=== PATIENT | female | born 1955 | race Caucasian/White ===

== ENCOUNTER 2018-01-23 09:32 | Emergency (ER) | payer BC ==
[~2018-01-23] VITALS: Ht 165.1 cm; Wt 80.8 kg
[2018-01-23 09:34] VITALS: TEMP 36.7; Ht 165.1 cm; Wt 80.8 kg
[2018-01-23] MEDS ORDERED: THYR90TA PO (09:51)
[2018-01-23] MEDS ORDERED: SIMV40TA2 PO (09:51)
[2018-01-23] MEDS ORDERED: DIPHTHERIA/TETANUS/PERTUSSIS 0.5 ML SYR/VIAL IM. ONE (10:15)
--- NOTE | 2018-01-23 11:01 | DIAGNOSTIC IMAGING REPORT ---
LEFT LOWER EXTREMITY ULTRASOUND CLINICAL HISTORY: Left upper calf edema and erythema. Evaluate for abscess. COMPARISON STUDY: No previous studies for comparison. TECHNIQUE: Sonography of the left calf at site of edema and erythema was performed. FINDINGS: No fluid collection or other sonographic abnormality was identified within the left calf. IMPRESSION: No abscess within the left calf. Electronically signed by: Alex Schuster M.D. 01/23/2018 10:59 AM Dictated Date/Time: 01/23/2018 10:52 AM
--- NOTE | 2018-01-23 11:07 | EMERGENCY ROOM VISIT NOTE ---
History First contact with patient: 09:48 Chief Complaint: BITE Stated Complaint: BITE LEFT LEG History of Present Illness The patient is a 62 year old female who presents to the Emergency Room via private vehicle with complaints of "bite left leg". The patient states that she believes she was bitten by something on the left lateral proximal calf. She states that yesterday she noticed a small amount of redness which now has in size. It is circular in nature. Slightly raised. She feels as though there could be some fluctuance to the center of it. She notes that she did not see whatever was it may have bitten her. She does not think her tetanus is up- to-date. She is tried cream without relief. She rates the pain as a 5/10. No history of clots. No history of MRSA. Review of Systems A complete 6-point Review of Systems was discussed with the patient, with pertinent positives and negatives listed in the History of Present Illness. All remaining Review of Systems questions can be considered negative unless otherwise specified. Past Medical/Surgical History No pertinent. Family History No pertinent. Social History Smoking Status: Former Smoker Patient lives locally. Current/Historical Medications Scheduled Doxycycline (Monohydrate) (Doxycycline), 100 MG PO BID Simvastatin (Zocor), 40 MG PO DAILY Thyroid ([place] Thyroid), 90 MG PO DAILY Physical Exam Vital Signs Date Time Temp Pulse Resp B/P (MAP) Pulse Ox O2 Delivery O2 Flow Rate FiO2 01/23/18 11:34 78 18 130/80 98 Room Air 01/23/18 09:34 36.7 74 20 137/85 96 Room Air Physical Exam VITAL SIGNS - Vital signs and nursing notes were reviewed. Stable. Afebrile. GENERAL -62-year-old female appearing her stated age who is in no acute distress. Communicates well with provider and answers questions appropriately. SKIN -overlying the patient's left lateral proximal calf there is a 6 cm in diameter erythematous region. Minimal induration in the center. No fluctuance or drainage. No calf tenderness. No lymphangitic streaking. HEAD - NC/AT. EYES - Sclera anicteric. EARS - No deformities of external structures noted on gross examination bilaterally. NOSE - Midline and without cyanosis. No epistaxis or purulent drainage noted. MOUTH/OROPHARYNX - Without perioral cyanosis. EXTREMITIES - No clubbing or peripheral cyanosis. No pretibial edema present. No calf tenderness. Minimal tenderness overlying the erythematous region. No evidence of trauma. +5/5 strength noted in UE/LE bilaterally. NEUROLOGIC - Cranial nerves II through XII grossly intact. Sensory intact to light touch throughout. PSYCH - A&O, and cooperates fully with examiner. Pt is very pleasant and interacts well with examiner. Medical Decision & Procedures ER Provider Diagnostic Interpretation: LEFT LOWER EXTREMITY ULTRASOUND CLINICAL HISTORY: Left upper calf edema and erythema. Evaluate for abscess. COMPARISON STUDY: No previous studies for comparison. TECHNIQUE: Sonography of the left calf at site of edema and erythema was performed. FINDINGS: No fluid collection or other sonographic abnormality was identified within the left calf. IMPRESSION: No abscess within the left calf. Electronically signed by: Alex Schuster M.D. 01/23/2018 10:59 AM Dictated Date/Time: 01/23/2018 10:52 AM Medications Administered Medications (Trade) Dose Ordered Sig/Mitch Route Start Time Stop Time Status Last Admin Dose Admin Diphtheria/ Pertussis/Tetanus Vacc (Adacel Inj) 0.5 ml ONCE ONCE IM. 01/23/18 10:15 01/23/18 10:16 DC 01/23/18 10:09 0.5 ML Mupirocin (Bactroban 2% Oint) 1 appln NOW STAT EXT 01/23/18 11:09 01/23/18 11:11 DC 01/23/18 11:25 1 APPLN Medical Decision Patient was seen and evaluated as above in room A3. Review was performed of nursing notes and vital signs. After obtaining a thorough history and physical examination the above work up was performed. She presents to us today with left calf erythema. It is overlying a bony region. I do not suspect DVT. Ultrasound was obtained to rule out abscess. This was negative. Results as above. Tetanus updated. Region was circled with a skin marking pen. She will be given doxycycline for antibiotic coverage. She will also be given Bactroban ointment. She is to follow with the family doctor or return with worsening. At this time she meets no criteria for inpatient management as she has no fevers , chills, systemic symptoms, or abnormal vital signs. The patient was educated upon management, educated upon todays findings/results, educated upon symptoms in which to return, had questions answered prior to discharge, and was discharged home in good condition. Case was discussed with the attending physician. In the evaluation and treatment of this patient the following differential diagnoses were entertained: DVT, cellulitis, abscess, among others. Impression Primary Impression: Cellulitis Departure Information Dispostion Home / Self-Care Condition GOOD Prescriptions Doxycycline (Monohydrate) (Doxycycline) 100 Mg Cap 100 MG PO BID for 10 Days, #20 TABS Prov: Dwight Naranjo KENDALL Pettit 01/23/18 Referrals Teo Irvin M.D. (PCP) Patient Instructions My [facility] Additional Instructions You seen in the emergency department for a skin infection of your left leg. At this time I would recommend doxycycline. 100mg every 12 hours for 10 days. You have been prescribed Doxycycline to be taken as prescribed. This is an antibiotic. All antibiotics have the potential to cause diarrhea. Stop this medication and contact a medical provider if you were to develop any significant adverse side effects including: wheezing, shortness of breath, passing out, vomiting, or a diffuse rash. Always take antibiotics as directed and COMPLETE the ENTIRE course regardless of the improvement of your symptoms. Protect yourself with sunscreen while on this antibiotic as it increases your skin's sensitivity to the light and cause bad sunburns. In addition, you should be sure to take this pill after eating. Make sure the pill is completely swallowed as this medication can cause irritation to the lining of the esophagus. Do NOT drink milk or eat anything with large amounts of Calcium in them 1 hour prior to taking this medication as this will decrease the effectiveness of the medication. Please have the family doctor recheck this in the next 48 hours. If this worsens or if you develop fevers, chills, nausea, vomiting please return. Bactroban ointment: Apply to affected area 3 times daily for 10 days
[2018-01-23] MEDS ORDERED: MUPIROCIN 2% OINT 22 GM TUBE EXT STA (11:09)
[2018-01-23] MEDS ORDERED: DOXY-300 PO ×2 (11:25→12:18)
[2018-01-23 11:34] VITALS: BP 130/80; PULSE 78; O2SAT 98
== END 2018-01-23 11:42 | disposition home or self-care (01) ==
LOC: C.EDB 09:33 → C.EDA 11:42
DX: L03.90 Cellulitis, unspecified (principal); Z87.891 Personal history of nicotine dependence; Z23 Encounter for immunization

== ENCOUNTER 2018-01-25 14:30 | Emergency (ER) | payer BC ==
[~2018-01-25] VITALS: Ht 165.1 cm; Wt 80.0 kg
[~2018-01-25 14:30] MED LIST: DOXY-300 PO; SIMV40TA2 PO; THYR90TA PO
[2018-01-25 14:47] VITALS: TEMP 36.8; Ht 165.1 cm; Wt 80.0 kg
[2018-01-25] MEDS ORDERED: CEFTRIAXONE SOD 350MG/ML 1 GM VIAL IM ONE (15:15)
[2018-01-25] MEDS ORDERED: CEPH500C2 PO (15:32)
--- NOTE | 2018-01-25 15:53 | EMERGENCY ROOM VISIT NOTE ---
ED Visit Note First contact with patient: 14:52 CHIEF COMPLAINT: Recheck left lower leg cellulitis HISTORY OF PRESENT ILLNESS: Patient is a 62-year-old female who returns to the emergency department as advised for recheck of a suspected cellulitis on the left lateral calf. She was seen and thoroughly evaluated here 2 days ago for the same complaint. She has been on doxycycline and taken her fourth dose of doxy just this morning. She has been applying Bactroban ointment to the area. She notes that the area of redness has spread not quite an inch circumferentially around the initial pen line. She is concerned because she does not have an appointment with her PCP until Saturday the . She otherwise feels well. The area is not particularly painful, she states that it is slightly sore and "heavy" sometimes, and itches on occasion. She denies any fever, chills, nausea, vomiting or malaise. She believes that the incident started with a "spider bite" after she was outside. REVIEW OF SYSTEMS: Review of systems as per HPI. All other systems reviewed were negative. 10 systems reviewed. PMH: Electronic medical records are reviewed and summarized as above/below. See Problem List. SOCIAL HISTORY: Patient lives at home with her spouse. Former smoker. PHYSICAL EXAM: Vital Signs: Reviewed Nurse's notes. GENERAL: Patient is a pleasant, well-appearing 62-year-old female who is awake and alert and in no acute distress. NEUROLOGICAL: Alert and cooperative. Sensory and motor functions grossly intact. INTEGUMENTARY: Examination of the left leg, proximal calf, just lateral to the knee note an oval-shaped area of erythema, it is more beefy red centrally, slightly raised, no fluctuance, drainage or exudate appreciated. Is roughly 8 cm at its largest diameter. It does not cross the knee joint. There is no calf tenderness. No lymphangitic streaking. MUSCULOSKELETAL: Knee joint is nontender to palpation. No joint effusion palpable. Full range of motion. Right lower extremity is neurovascularly intact. EMERGENCY DEPARTMENT COURSE: The patient was seen and assessed as above. Her old records were reviewed, specifically her ED visit from 2 days ago. She is only had 4 doses of doxycycline, but has not shown any significant clinical improvement, and appears to be slightly worsening. She really would prefer to continue outpatient management, and given that she is well-appearing and nontoxic, I do feel that this is reasonable. She has an appointment with her PCP in [place] in 2 days. She was given ceftriaxone 1 g IM. Keflex will be added to her regimen. She was instructed to continue the doxycycline. Certainly if things worsen in the next 24 hours, she can return to the ED, at which point she will likely require inpatient care, otherwise she can follow-up with her primary care provider on Saturday as she has scheduled. Differential diagnoses include cellulitis, superficial thrombophlebitis, abscess, allergic reaction, contact dermatitis, among others. Medication reconciliation: I attest that I have personally reviewed the patient' s current medication list. Blood pressure screening : Patient was found to have normal blood pressure on screening and does not require follow-up. Problem List Medical Problems: (1) Dyslipidemia Status: Chronic (2) Hypothyroidism Status: Chronic Surgical Problems: (1) History of section Status: Resolved (2) History of nephrectomy, unilateral Status: Resolved (3) History of ovarian cystectomy Status: Resolved Current/Historical Medications Scheduled Cephalexin Monohydrate (Keflex), 500 MG PO QID Doxycycline (Monohydrate) (Doxycycline), 100 MG PO BID Simvastatin (Zocor), 40 MG PO DAILY Thyroid ([place] Thyroid), 90 MG PO DAILY Allergies Coded Allergies: Naproxen (Unverified Allergy, Intermediate, ., 01/23/18) Penicillins (Unverified Allergy, Intermediate, ., 01/23/18) Vital Signs Date Time Temp Pulse Resp B/P (MAP) Pulse Ox O2 Delivery O2 Flow Rate FiO2 01/25/18 14:47 36.8 90 18 118/82 97 Room Air Medications Administered Medications (Trade) Dose Ordered Sig/Mitch Route Start Time Stop Time Status Last Admin Dose Admin Ceftriaxone Sodium (Rocephin Im) 1,000 mg NOW ONCE IM 01/25/18 15:15 01/25/18 15:16 DC 01/25/18 15:41 1,000 MG Departure Information Impression Primary Impression: Cellulitis Prescriptions Cephalexin Monohydrate (KEFLEX) 500 Mg Cap 500 MG PO QID, #40 CAP Prov: Rosalia Dewitt PA 01/25/18 Referrals Teo Irvin M.D. (PCP) Patient Instructions My [facility] Additional Instructions Continue doxycycline as previously prescribed. Cephalexin(Keflex) 500mg: Take one pill four times daily for 10 days for your skin infection. All antibiotics can cause diarrhea. If this occurs and you feel worse or it does not resolve in 1-2 days follow up with your doctor or return to the Emergency Department as this could be signs of serious underlying problems. Any medication can cause an allergic reaction, stop the pills immediately and return to the ER for rash, hives, breathing difficulties, or swelling. Ibuprofen(Motrin, Advil) may be used for fever or pain. Use 600mg every six hours as needed. Take with food. Avoid using more than 2400mg in a 24 hour period. Do not use 2400mg per day for more than three consecutive days without physician direction. Prolonged inappropriate use can lead to stomach upset or ulcers. (AND/OR) Acetaminophen(Tylenol) may be used for fever or pain. Use 1000mg every six hours as needed. Avoid using more than 3000mg in a 24 hour period. Warm compresses to the affected area 4 times daily for 15-20 minutes. Rest and drink plenty of fluids. Continue current medications. Return to the ER for severe pain, persistent fevers, spreading redness, or any worsening of your condition. Follow up with your primary physician on Saturday as scheduled for a recheck of the current condition. Problem Qualifiers Primary Impression: Cellulitis Site of cellulitis: extremity Site of cellulitis of extremity: lower extremity Laterality: left Qualified Codes: L03.116 - Cellulitis of left lower limb
[2018-01-25 16:15] VITALS: BP 125/85; PULSE 83; O2SAT 96
== END 2018-01-25 16:15 | disposition home or self-care (01) ==
LOC: C.EDB 14:31 → C.EDD 16:15
DX: L03.116 Cellulitis of left lower limb (principal); E78.5 Hyperlipidemia, unspecified; E03.9 Hypothyroidism, unspecified; Z87.891 Personal history of nicotine dependence; Z90.5 Acquired absence of kidney; Z79.899 Other long term (current) drug therapy; Z88.6 Allergy status to analgesic agent; Z88.0 Allergy status to penicillin

== ENCOUNTER 2024-11-23 10:34 | Inpatient (IN) ==
--- NOTE | 2024-11-23 10:58 | Emergency Department Note ---
Impression & Plan Diverticulitis, Abdominal pain, Leukocytosis ED Provider Note NAME: CHAU RODRIGUEZ AGE: 69 SEX: F : 1955 ARRIVES VIA: Walk-In INFORMANT: Patient ED PROVIDER(S): Ronnie Montalvo DO CHIEF COMPLAINT: Abdominal pain HPI: Patient is a 69-year-old female with a past medical history of who presents to the ER for left lower quadrant abdominal pain which started on Saturday. Has been waxing and waning in intensity but fairly constant. She has not been eating. No vomiting. Has had some pasty stools. Patient denies any headache or change in vision. No chest pain or shortness of breath. No dysuria, urgency or frequency. No other exacerbating or remitting factors. ADDITIONAL HISTORY OBTAINED: Per HPI Chronic Medical/Social Conditions Affecting Care: Per HPI PAST MEDICAL HISTORY:See Below PAST SURGICAL HISTORY:See Below FAMILY HISTORY:See Below SOCIAL HISTORY:See Below HOME MEDICATIONS:See Below ALLERGIES:See Below VITALS:See Below PHYSICAL EXAMINATION: GENERAL: Sitting up in bed, alert, well appearing, well nourished, no distress, non-toxic EYE EXAM: normal conjunctiva. OROPHARYNX: mucous membranes are moist LUNGS: Clear to auscultation. Normal chest wall mechanics HEART: no murmurs, S1 normal and S2 normal ABDOMEN: abdomen soft, TTP in LLQ, normo-active bowel sounds, no masses, no rebound or guarding. UPPER EXTREMITIES: upper extremities are grossly normal. LOWER EXTREMITIES: No pitting edema. NEURO EXAM: Normal sensorium, cranial nerves II-XII grossly intact, normal speech, no gross weakness of arms, no gross weakness of legs. MEDICAL DECISION MAKING: Patient is a 69-year-old female who presents ER for above-stated complaint. IV was established and blood work was obtained. Labs show mild leukocytosis. No anemia. BMP along LFTs bilirubin and lipase as well as reassuring. UA was contaminated. CT abdomen pelvis consistent with diverticulitis and a questionable abscess was present. Patient was given IV Flagyl and Cipro. Was given IV fluids. Updated at bedside and discussed case with the hospitalist for further evaluation management and treatment. Consults/Care Managements Discussions: Per MDM Triage Nursing notes reviewed. Limited review of prior medical records performed Vital Signs: reviewed and remarkable for no significant abnormalities Differential diagnosis: Differential diagnoses includes but is not limited to gastritis, peptic ulcer disease, GERD, gallbladder disease, pancreatitis, small bowel obstruction, appendicitis, diverticulitis, hernia, urinary tract infection, torsion, perforation, trauma, infectious. ER treatment provided: See below Diagnostics interpreted by me include EKG and cardiac monitoring as listed below: -Cardiac Monitoring: An order was placed for continuous cardiac monitoring. The monitor shows a rate of 90 with sinus rhythm. -ECG: none -Laboratory studies:Interpreted by me as stated above in MDM and shown below. Imaging studies: Xrays: As interpreted by me:none CTs show: CT abdomen pelvis per my preliminary interpretation showed no obvious bowel obstruction CT of the pelvis per radiology as described above Procedures:none Critical Care: None Past Med/Surg History Problem List (Updated 11/23/24 @ 16:56 by Ronnie Montalvo DO) Leukocytosis (Acute) Abdominal pain (Acute) Diverticulitis (Acute) Positive colorectal cancer screening using Cologuard test Medical History Dyslipidemia Polymyalgia rheumatica syndrome has been off prednisone ~09/2023 History of COVID-19 (12/10/12) no hosp; resolved Suspected sleep apnea no sleep study done; was told by anesthesia after granuloma removal (~10 yrs ago) that they suspected sleep apnea. Has had no general procedures since, last thing done was tooth extraction, no issues Hypothyroidism Hx of unilateral nephrectomy at 7 yrs old; d/t defect Surgical History History of ovarian cystectomy Hx of excision of mass hx benign granuloma removed from chest Hx of section Hx of tooth extraction Social History Smoking Status: Current every day smoker Tobacco Type: E-cigarettes / Vaping Second Hand Exposure: No; Hx Alcohol Use: Yes Hx Substance Use: No Preferred Language: Czech Communication Ability: Effective Auto Polisher Required: No Beliefs That Will Affect Care: None Current Living Situation: Spouse Feels Safe at Home: Yes Assistive Devices: None Allergies Allergies Allergy/AdvReac Type Severity Reaction Status Date / Time Penicillins Allergy Intermediate Rash Verified 05/06/24 08:53 naproxen AdvReac Intermediate N/V Verified 05/06/24 08:53 Home Meds Home Medications Medication Instructions Recorded Confirmed Co Q-10 1 tab PO QAM 04/27/24 11/23/24 Enhansa 1 tab PO QAM 04/27/24 11/23/24 multivitamin 1 tab PO QAM 04/27/24 11/23/24 rosuvastatin 10 mg tablet (Crestor) 10 mg PO .TWICE WEEKLY 04/27/24 11/23/24 thyroid (pork) 90 mg tablet 90 mg PO QAM 04/27/24 11/23/24 ([place] Thyroid) alprazolam 0.5 mg tablet 0.5 mg PO DAILY PRN Other 11/23/24 11/23/24 Results & Data (ED) Vital Signs Vital Signs - 24 hr 11/23/24 10:44 11/23/24 11:11 11/23/24 11:11 Temperature 36.8 C Temperature Source Oral Pulse Rate 93 H 87 Pulse Rate [Apical] 87 Respiratory Rate 20 21 Respiratory Effort / Characteristics Non-Labored Spontaneous Non-Labored Spontaneous Respiratory Depth Normal Respiratory Pattern Regular Blood Pressure 123/77 Blood Pressure [Right Arm] 108/88 Blood Pressure Mean 92 Blood Pressure Mean [Right Arm] 94 Blood Pressure Position [Right Arm] Lying Pulse Oximetry 97 95 95 Oxygen Delivery Method Room Air Room Air Room Air Sepsis Recent Fever Within 48 Hours No Sepsis New/Unexplained Change in Mental Status N/A Sepsis Action Taken by Nursing No Action Required 11/23/24 11:27 Temperature Temperature Source Pulse Rate 90 Pulse Rate [Apical] Respiratory Rate Respiratory Effort / Characteristics Respiratory Depth Respiratory Pattern Blood Pressure Blood Pressure [Right Arm] Blood Pressure Mean Blood Pressure Mean [Right Arm] Blood Pressure Position [Right Arm] Pulse Oximetry Oxygen Delivery Method Sepsis Recent Fever Within 48 Hours Sepsis New/Unexplained Change in Mental Status Sepsis Action Taken by Nursing Laboratory Data 11/23/24 11:04 11/23/24 11:04 Lab Results 11/23/24 Range/Units 11:04 WBC 11.40 H (4.8-10.8) K/ul RBC 5.13 (4.20-5.40) M/uL Hgb 14.9 (12.0-16.0) g/dl Hct 46.8 (37.0-47.0) % MCV 91.2 (80.0-100.0) fL MCH 29.0 (25.0-34.0) pg MCHC 31.8 L (32.0-36.0) g/dL RDW Std Deviation 44.0 (36.4-46.3) fL RDW Coeff of Bettie 13.0 (11.5-14.5) % Plt Count 303 (130-400) K/uL MPV 10.6 (9.4-12.4) fL Immature Gran % (Auto) 0.4 % Neut % (Auto) 69.1 % Lymph % (Auto) 21.2 % [place] % (Auto) 7.2 % Eos % (Auto) 1.7 % Baso % (Auto) 0.4 % Neut # (Auto) 7.88 H (1.40-6.50) K/uL Lymph # (Auto) 2.42 (1.20-3.40) K/uL [place] # (Auto) 0.82 H (0.11-0.59) K/uL Eos # (Auto) 0.19 (0.00-0.50) K/uL Baso # (Auto) 0.04 (0.00-0.20) K/uL Immature Gran # (Auto) 0.05 (0.01-0.20) K/uL Sodium 136 (136-145) mmol/L Potassium 4.2 (3.5-5.1) mmol/L Chloride 103 (98-107) mmol/L Carbon Dioxide 26 (21-32) mmol/L Anion Gap 7 (3-11) BUN 11 (6-23) mg/dl Creatinine 0.95 (0.6-1.2) mg/dl Est Cr Clr Drug Dosing 60.3 ml/min eGFR 65.26 BUN/Creatinine Ratio 11.6 (10-20) Glucose 103 H (70-99(Fasting)) mg/dl Calcium 9.4 (8.6-10.3) mg/dl Total Bilirubin 0.9 (0.2-1.0) mg/dl AST 28 (13-39) U/L ALT 29 (7-52) U/L Alkaline Phosphatase 86 (34-104) U/L Total Protein 7.7 (6.0-8.3) gm/dl Albumin 4.4 (3.4-5.0) gm/dl Globulin 3.3 (2.5-4.0) gm/dl Albumin/Globulin Ratio 1.3 (0.9-2) Lipase 20 (11-82) U/L Urine Color Yellow Urine Appearance Clear (Clear) Urine pH 6.0 (4.5-7.5) Ur Specific Ethel 1.008 (1.000-1.030) Urine Protein Negative (Negative) Urine Glucose (UA) Negative (Negative) Urine Ketones Trace H (Negative) Urine Blood Negative (Negative) Urine Nitrite Negative (Negative) Urine Bilirubin Negative (Negative) Urine Urobilinogen Negative (Negative) Ur Leukocyte Esterase 3+ H (Negative) Urine WBC (Auto) >50 H (0-5) /hpf Urine RBC (Auto) 0-2 (0-2) /hpf U Hyaline Cast (Auto) 3-5 H (0-2) /lpf U Epithel Cells (Auto) 6-10 H (0-2) /hpf Urine Bacteria (Auto) 1+ H (None Seen) Urine Comment Administered Medications Discontinued Medications Sodium Chloride (Nss) 1,000 mls @ 999 mls/hr IV .Q1H1M ONE Stop: 11/23/24 11:49 Last Infusion: 11/23/24 12:57 Dose: Infused Documented By: Admin: 11/23/24 11:07 Dose: 999 mls/hr Documented By: GE Metronidazole (Flagyl) 500 mg in 100 mls @ 100 mls/hr IV NOW STA; Protocol Stop: 11/23/24 13:24 Last Infusion: 11/23/24 13:44 Dose: Infused Documented By: Admin: 11/23/24 12:38 Dose: 100 mls/hr Documented By: GE Ciprofloxacin (Cipro / D5w) 400 mg in 200 mls @ 100 mls/hr IV NOW STA; Protocol Stop: 11/23/24 14:24 Last Infusion: 11/23/24 15:04 Dose: Infused Documented By: Admin: 11/23/24 12:37 Dose: 100 mls/hr Documented By: GE Ioversol (Optiray 320 100ml) 92 ml IV ONCE ONE Stop: 11/23/24 11:55 Last Admin: 11/23/24 11:54 Dose: 92 ml Documented By: ABS Imaging Data Radiologist's Impression: Abdomen/Pelvis CT 11/23/24 10:[address] WITH IV CONTRAST CT DOSE: 1307.84 mGy.cm HISTORY: Mid to lower abdominal pain mid abd pain TECHNIQUE: Multiaxial CT images of the abdomen and pelvis were performed following the IV administration of 92 cc of Optiray, A dose lowering technique was utilized adhering to the principles of ALARA. COMPARISON STUDY: None. FINDINGS: Clear lung bases. No pneumatosis or pneumoperitoneum. Unremarkable spleen, pancreas, gallbladder, adrenal glands and liver. Patent portal vein. Unremarkable right kidney. Absent left kidney. Urinary bladder wall thickening with partial distention. Uterus and adnexa are unremarkable. Mild atherosclerosis of the aorta. No lymphadenopathy. Small hiatal hernia. No bowel obstruction. Duodenal diverticulum. Acute sigmoid diverticulitis. Possible intramural abscess of the sigmoid on image 285 measures 2.7 cm in length. No drainable fluid collections. Appendix not seen. No acute fracture. Chronic appearing left-sided L5 pars defect. IMPRESSION: 1. Acute sigmoid diverticulitis without obstruction, pneumoperitoneum or drainable abscess. There is however a possible small intramural abscess of the sigmoid. 2. Absent left kidney. 3. Small hiatal hernia. ACT 112: Negative or not required by law. The above report was generated using voice recognition software. It may contain grammatical, syntax or spelling errors. Electronically signed by: Junior Whitlock M.D. 11/23/2024 12:17 PM Discharge Plan Visit Data Chief Complaint: Abdominal Pain Stated Complaint: ABD PAIN ED Provider: Ronnie Montalvo Discharge Problem: Diverticulitis, Abdominal pain, Leukocytosis Patient Disposition: Admitted As Inpatient Condition: Fair Discharge Instructions Interventions: ED Discharge Assessment Last Done: 11/23/24 15:57 Discharge Problem: Abdominal pain Qualifiers: Abdominal location: unspecified location Qualified Code(s): R10.9 - Unspecified abdominal pain Leukocytosis Qualifiers: Leukocytosis type: unspecified Qualified Code(s): D72.829 - Elevated white blood cell count, unspecified
[2024-11-23] MEDS: SODIUM CHLORIDE 0.9% 1,000 ML IV ONE (11:07)
[2024-11-23 11:24] LABS: Basophils # (auto) 0.04 K/uL (0.00-0.20); Basophils % (auto) 0.4 %; Eosinophils # (auto) 0.19 K/uL (0.00-0.50); Eosinophils % (auto) 1.7 %; Hematocrit (blood only) 46.8 % (37.0-47.0); Hemoglobin 14.9 g/dl (12.0-16.0); Immature Granulocytes # (auto) 0.05 K/uL (0.01-0.20); Immature Granulocytes % (auto) 0.4 %; Lymphocytes # (auto) 2.42 K/uL (1.20-3.40); Lymphocytes % (auto) 21.2 %; Mean Corpuscular Hgb Conc 31.8 g/dL (32.0-36.0); Mean Corpuscular Volume 91.2 fL (80.0-100.0); Mean Platelet Volume 10.6 fL (9.4-12.4); Monocytes # (auto) 0.82 K/uL (0.11-0.59); Monocytes % (auto) 7.2 %; Neutrophils # (auto) 7.88 K/uL (1.40-6.50); Neutrophils % (auto) 69.1 %; Platelet Count 303 K/uL (130-400); Red Blood Count 5.13 M/uL (4.20-5.40)
[2024-11-23 11:36] LABS: Appearance Urine Clear (Clear); Bacteria Urine Automated 1+ (None Seen); Bilirubin Urine Negative (Negative); Blood Urine Negative (Negative); Color Urine Yellow; Glucose Urine UA Negative (Negative); Ketones Urine Trace (Negative); Leukocyte Esterase Urine 3+ (Negative); Nitrite Urine Negative (Negative); Protein Urine Negative (Negative); RBC Urine Automated 0-2 /hpf (0-2); Specific Gravity Urine 1.008 (1.000-1.030); Urobilinogen Urine Negative (Negative); WBC Urine Automated >50 /hpf (0-5)
[2024-11-23 11:46] LABS: Albumin Globulin Ratio 1.3 (0.9-2); Albumin Level 4.4 gm/dl (3.4-5.0); BUN Creatinine Ratio 11.6 (10-20); Bilirubin,Total 0.9 mg/dl (0.2-1.0); Calcium 9.4 mg/dl (8.6-10.3); Creatinine Clr Calc Pharmacy 60.3 ml/min; Globulin 3.3 gm/dl (2.5-4.0); Potassium 4.2 mmol/L (3.5-5.1); Total Protein 7.7 gm/dl (6.0-8.3)
[2024-11-23] MEDS: OPTIRAY 320 100ml IV ONE (11:54)
--- NOTE | 2024-11-23 12:18 | CT Scan Report ---
ABDOMEN AND PELVIS CT WITH IV CONTRAST CT DOSE: 1307.84 mGy.cm HISTORY: Mid to lower abdominal pain mid abd pain TECHNIQUE: Multiaxial CT images of the abdomen and pelvis were performed following the IV administrat ion of 92 cc of Optiray, A dose lowering technique was utilized adhering to the principles of ALARA. COMPARISON STUDY: None. FINDINGS: Clear lung bases. No pneumatosis or pneumoperitoneum. Unremarkable spleen, pancreas, gallbl adder, adrenal glands and liver. Patent portal vein. Unremarkable right kidney. Absent left kidney. U rinary bladder wall thickening with partial distention. Uterus and adnexa are unremarkable. Mild athe rosclerosis of the aorta. No lymphadenopathy. Small hiatal hernia. No bowel obstruction. Duodenal diverticulum. Acute sigmoid diverticulitis. Possi ble intramural abscess of the sigmoid on image 285 measures 2.7 cm in length. No drainable fluid dean ections. Appendix not seen. No acute fracture. Chronic appearing left-sided L5 pars defect. IMPRESSION: 1. Acute sigmoid diverticulitis without obstruction, pneumoperitoneum or drainable abscess. There is however a possible small intramural abscess of the sigmoid. 2. Absent left kidney. 3. Small hiatal hernia. ACT 112: Negative or not required by law. The above report was generated using voice recognition software. It may contain grammatical, syntax o r spelling errors. Electronically signed by: Junior Whitlock M.D. 11/23/2024 12:17 PM
[2024-11-23] MEDS: CIPROFLOXACIN / D5W 400 MG/200 ML BAG IV STA (12:37)
[2024-11-23] MEDS: metroNIDAZOLE 500 MG/100 ML BAG IV STA (12:38)
--- NOTE | 2024-11-23 13:15 | History & Physical Report ---
Date of Service November 23, 2024 Assessment & Plan (1) Hypothyroidism: (2) Dyslipidemia: (3) Diverticulitis: Plan 69-year-old female who presents with abdominal pain found to have diverticulitis with a small intramural abscess. 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 Urine culture is pending at time of admission #Diverticulitis. Will patient be kept n.p.o. except for ice chips Cipro Flagyl continues patient have an additional liter fluid if the patient improves we may advance diet #Hypothyroidism patient given her [place] Thyroid with a small sip of water #Dyslipidemia patient's Crestor is on hold. DVT prevention is heparin therapy History of Present Illness Primary Care Provider: Teo Irvin MD 69-year-old female presents with left lower quadrant pain which began 3 days prior to admission it is crescendo decrescendo. She said change in stool habits to be more of a pasty soft stool. She has had no bleeding. Her last colonoscopy was May [address] Sood at which time she had 3 polyps removed and was told she had diverticulosis. She has never had a problem with diverticulitis. In the emergency department she has a mild white blood cell count elevation and signs of diverticulitis with intramural abscess but no pneumoperitoneum or phlegmon formation Patient was given Cipro Flagyl in the ER she will be admitted to our facility Allergies Allergy/AdvReac Type Severity Reaction Status Date / Time Penicillins Allergy Intermediate Rash Verified 05/06/24 08:53 naproxen AdvReac Intermediate N/V Verified 05/06/24 08:53 Home Medications Medication Instructions Recorded Confirmed Type Co Q-10 1 tab PO QAM 04/27/24 11/23/24 History Enhansa 1 tab PO QAM 04/27/24 11/23/24 History multivitamin 1 tab PO QAM 04/27/24 11/23/24 History rosuvastatin 10 mg tablet (Crestor) 10 mg PO .TWICE WEEKLY 04/27/24 11/23/24 History thyroid (pork) 90 mg tablet 90 mg PO QAM 04/27/24 11/23/24 History ([place] Thyroid) alprazolam 0.5 mg tablet 0.5 mg PO DAILY PRN Other 11/23/24 11/23/24 History Past Med/Surg History Problem List (Updated 11/23/24 @ 13:12 by Suman Mckee MD) Diverticulitis Positive colorectal cancer screening using Cologuard test Medical History (Updated 11/23/24 @ 13:12 by Suman Mckee MD) Dyslipidemia Polymyalgia rheumatica syndrome has been off prednisone ~09/2023 History of COVID-19 (12/10/12) no hosp; resolved Suspected sleep apnea no sleep study done; was told by anesthesia after granuloma removal (~10 yrs ago) that they suspected sleep apnea. Has had no general procedures since, last thing done was tooth extraction, no issues Hypothyroidism Hx of unilateral nephrectomy at 7 yrs old; d/t defect Surgical History History of ovarian cystectomy Hx of excision of mass hx benign granuloma removed from chest Hx of section Hx of tooth extraction Social History Smoking Status: Current every day smoker Tobacco Type: E-cigarettes / Vaping Second Hand Exposure: No; Hx Alcohol Use: Yes Hx Substance Use: No Preferred Language: Swedish Communication Ability: Effective Social Insurance Adviser Required: No Beliefs That Will Affect Care: None Current Living Situation: Spouse Feels Safe at Home: Yes Assistive Devices: None Review of Systems Review of Systems: Mild distress and fatigue no headache, no visual changes no speech or swallowing issues no chest pain, pressure or palpitations no shortness of breath, cough or wheezes Presented to congenital left lower quadrant abdominal pain there is some worsening pain with walking no dysuria, hematuria or frequency no focal joint pain or swelling no back pain, CVA tenderness or radicular pain no bruising, bleeding or rashes no focal signs of weakness or numbness or altered sensation no complaints of anxiety or depression.. Physical Exam Physical Exam: The patient appeared well nourished and normally developed. Vital signs as documented. Head exam is normocephalic atraumatic Neck is without JVD, thyromegaly, or carotid bruits. Lungs are clear to auscultation, no focal loss of breath sounds Cardiac exam, Rhythm is regular.. No murmurs, rubs or gallops. Abdominal exam reveals normal bowel sounds, soft left lower quadrant pain guarding but no rebound Mild right upper quadrant discomfort may be positional Extremities are nonedematous and both pedal pulses are present Neurologic exam is alert and oriented, no focal loss of strength or sensation Skin is without bruises or rashes Psychologically is without concerns for anxiety or depression.. Results & Data Results & Data Vital Signs (Past 12 Hours) Vital Signs Temp Pulse Pulse Resp BP BP Pulse Ox 11/23/24 11:27 90 11/23/24 11:11 87 95 11/23/24 11:11 87 21 108/88 95 11/23/24 10:44 98.2 F 93 H 20 123/77 97 O2 Del Method 11/23/24 11:27 11/23/24 11:11 Room Air 11/23/24 11:11 Room Air 11/23/24 10:44 Room Air Laboratory Results Reviewed CBC chemistry CT scan discussed case with ER provider Dr. Montalvo Code Status & VTE Plan VTE Prophylaxis Plan VTE Prophylaxis will be ordered: No PG Care Time/CCT Total # of Minutes Spent Total Time Spent with Patient: Total time spent is greater than 50% in coordination of care (as documented) at patient's floor/unit and/or counseling patient: Coding Level of Care Code 00593 INT INP/OBS CARE 2/55MIN Diagnoses Hypothyroidism E03.9 Dyslipidemia E78.5 Diverticulitis K57.92
[2024-11-23] MEDS ORDERED: MoRPHine SULFATE 2 MG/ML CARP IV PRN (15:56)
[2024-11-23] MEDS ORDERED: MoRPHine SULFATE 4 MG/ML 1 ML CARP\\VIAL IV PRN (15:56)
[2024-11-23] MEDS ORDERED: ALPRAZolam 0.5 MG TABLET PO PRN (15:56)
[2024-11-23] MEDS: LACTATED RINGER'S 1,000 ML IV SCH (17:11)
[2024-11-23] MEDS: HEPARIN SOD 5,000 UNIT/0.5 ML VIAL SQ SCH (20:13)
[2024-11-23] MEDS: metroNIDAZOLE 500 MG/100 ML BAG IV SCH (20:13)
[2024-11-24] MEDS: CIPROFLOXACIN / D5W 400 MG/200 ML BAG IV SCH (01:12)
[2024-11-24] MEDS: ONDANSETRON INJ 2 MG/ML 2 ML VIAL IV PRN (03:14)
[2024-11-24] MEDS: ARMOUR THYROID 30 MG TAB PO SCH (07:13)
[2024-11-24 07:16] LABS: Hematocrit (blood only) 38.8 % (37.0-47.0); Hemoglobin 12.8 g/dl (12.0-16.0); Mean Corpuscular Hemoglobin 29.8 pg (25.0-34.0); Mean Corpuscular Volume 90.4 fL (80.0-100.0); Mean Platelet Volume 10.5 fL (9.4-12.4); Platelet Count 264 K/uL (130-400); RDW Coefficient of Variation 13.1 % (11.5-14.5); Red Blood Count 4.29 M/uL (4.20-5.40); White Blood Count 8.47 K/ul (4.8-10.8)
[2024-11-24 07:35] LABS: Calcium 8.5 mg/dl (8.6-10.3); Potassium 4.3 mmol/L (3.5-5.1)
[2024-11-24 07:40] LABS: BUN Creatinine Ratio 12.4 (10-20); Creatinine Clr Calc Pharmacy 63.2 ml/min
--- NOTE | 2024-11-24 18:05 | Hospitalist Progress Note ---
Date of Service November 24, 2024 Assessment & Plan (1) Diverticulitis: (2) Hypothyroidism: (3) Dyslipidemia: Plan 69-year-old female who presents with abdominal pain found to have diverticulitis with a small intramural abscess. 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 Urine culture negative. #Diverticulitis Patient received IVF in the emergency department Leukocytosis has resolved (11.4 -> 8.4); VSS A/P CT with small intramural abscess; not drainable Continue ciprofloxacin + Flagyl Initially n.p.o. Patient reports resolution of abdominal pain on 11/24 Advanced to clear liquid on the morning of 11/24, then if tolerating, will advance to low fiber diet on the evening of 11/24 #Hypothyroidism Continue [place] Thyroid #Dyslipidemia Hold Crestor DVT prevention: Heparin Disposition: Hopeful discharge home on 11/25 on oral antibiotics if tolerating low fiber diet Admission and Anticipated Discharge Date Admission Date: November 23, 2024 Supervising Physician Co-Signing Physician Notes The patient was not seen by me. The chart was reviewed. Case discussed with MAIRA Mondragon. Agree with assessment and plan Subjective Mrs. Ibarra reports she is doing much better today. She has had no abdominal pain throughout the day, and her only complaint is that she is incredibly hungry, and that she slept poorly last night (mainly due to the fact that she slept on her left side where her IV was placed). Patient denies any prior history of diverticulitis. Originally, her left lower quadrant pain was severe, but she has had no recurrence of pain today. Prior surgical history includes C- section and ovarian rupture. No PMH of IBD. Patient's last colonoscopy was May 06, 2024, and patient reports this was unremarkable. Additionally, patient does have ongoing diarrhea every 6 hours which is brown/liquidy in consistency; denies any blood in her stool. ROS: Patient endorses dry cough, nausea (which patient attributes to antibiotics; alleviated by Zofran) and diarrhea. Patient denies fever, chills, night sweats, dizziness/lightheadedness when ambulating to the bathroom, abdominal pain, vomiting, blood in the urine or stool, lower back pain, or numbness or tingling in the arms or legs. Review of Systems Review of Systems: See HPI above Physical Exam Physical Exam: General: no acute distress; pleasant affect; non-toxic appearing; cooperative; SpO2 95% on RA HEENT: normocephalic, atraumatic; no scleral icterus; PERRLA; vision and hearing grossly intact Neck: supple; no lymphadenopathy; trachea midline Skin: warm, dry without signs of tenting; no cyanosis; no rashes, bruising, lesions, or erythema noted CV: chest wall NTP; RRR; pulses intact and symmetric at radial, DP, and PT Lungs: no acute respiratory distress; symmetrical chest wall expansion; clear breath sounds across all lung brock w/o adventitious sounds; no wheezing ABD: Soft, NTP in all 4 quadrants; BS present; no rebound/guarding; no distention MSK: no tics or fasciculations; no edema noted in the LEs b/l, nonerythematous Neuro: A&Ox3; normal mood and affect; fluent speech; no focal deficits; sensation intact and symmetric in lower extremities bilaterally Results & Data Results & Data Vital Signs (Past 12 Hours) Vital Signs Temp Pulse Resp BP Pulse Ox O2 Del Method 11/24/24 15:20 36.8 C 77 18 109/74 95 Room Air 11/24/24 07:48 36.4 C L 80 18 124/77 93 Room Air PG Care Time/CCT Total # of Minutes Spent Total Time Spent with Patient: Total time spent is greater than 50% in coordination of care (as documented) at patient's floor/unit and/or counseling patient: Coding [place] [address] SUB INP/OBS CARE 06/27MIN Patient Type Established Medical Decision Making Low Complexity Diagnoses Diverticulitis K57.92 Hypothyroidism E03.9 Dyslipidemia E78.5
[2024-11-25 07:05] LABS: Hematocrit (blood only) 37.8 % (37.0-47.0); Hemoglobin 12.5 g/dl (12.0-16.0); Mean Corpuscular Hemoglobin 29.7 pg (25.0-34.0); Mean Corpuscular Hgb Conc 33.1 g/dL (32.0-36.0); Mean Corpuscular Volume 89.8 fL (80.0-100.0); Mean Platelet Volume 10.6 fL (9.4-12.4); Platelet Count 272 K/uL (130-400); RDW Coefficient of Variation 12.9 % (11.5-14.5); RDW Standard Deviation 42.2 fL (36.4-46.3); Red Blood Count 4.21 M/uL (4.20-5.40); White Blood Count 7.31 K/ul (4.8-10.8)
[2024-11-25 07:28] LABS: BUN Creatinine Ratio 13.3 (10-20); Calcium 8.4 mg/dl (8.6-10.3); Creatinine Clr Calc Pharmacy 62.5 ml/min
--- NOTE | 2024-11-25 11:31 | Discharge Summary ---
Date of Service November 25, 2024 Admission HPI Per Admitting Provider 69-year-old female presents with left lower quadrant pain which began 3 days prior to admission it is crescendo decrescendo. She said change in stool habits to be more of a pasty soft stool. She has had no bleeding. Her last colonoscopy was May [address] Sood at which time she had 3 polyps removed and was told she had diverticulosis. She has never had a problem with diverticulitis. In the emergency department she has a mild white blood cell count elevation and signs of diverticulitis with intramural abscess but no pneumoperitoneum or phlegmon formation Patient was given Cipro Flagyl in the ER she will be admitted to our facility Specialty Data Hospitalist Discharge diagnosis: Diverticulitis Discharge assessment: Vital Signs Temp Pulse Resp BP Pulse Ox O2 Del Method 11/25/24 07:59 36.6 C 70 17 115/71 97 Room Air 11/24/24 20:03 36.8 C 80 16 108/65 94 Room Air 11/24/24 15:20 36.8 C 77 18 109/74 95 Room Air GENERAL: 69 yo well-nourished WF. A&Ox3. No distress. LUNGS: Clear to auscultation bilaterally. No W/R/R. CARDIOVASCULAR: Regular rate and rhythm. ABDOMEN: Soft, non-tender and non-distended. BS normoactive x 4 quad. EXTREMITIES: No edema. Non-tender. Peripheral pulses +2/4. SKIN: Warm, dry, intact. No rashes or lesions. Discharge Data Consultations 11/23/24 12:41 ED Decision to Admit Stat Procedures Performed 11/25/24 06:36 11/25/24 06:36 Abdomen/Pelvis CT 11/23/24 10:[address] WITH IV CONTRAST CT DOSE: 1307.84 mGy.cm HISTORY: Mid to lower abdominal pain mid abd pain TECHNIQUE: Multiaxial CT images of the abdomen and pelvis were performed following the IV administration of 92 cc of Optiray, A dose lowering technique was utilized adhering to the principles of ALARA. COMPARISON STUDY: None. FINDINGS: Clear lung bases. No pneumatosis or pneumoperitoneum. Unremarkable spleen, pancreas, gallbladder, adrenal glands and liver. Patent portal vein. Unremarkable right kidney. Absent left kidney. Urinary bladder wall thickening with partial distention. Uterus and adnexa are unremarkable. Mild atherosclerosis of the aorta. No lymphadenopathy. Small hiatal hernia. No bowel obstruction. Duodenal diverticulum. Acute sigmoid diverticulitis. Possible intramural abscess of the sigmoid on image 285 measures 2.7 cm in length. No drainable fluid collections. Appendix not seen. No acute fracture. Chronic appearing left-sided L5 pars defect. IMPRESSION: 1. Acute sigmoid diverticulitis without obstruction, pneumoperitoneum or drainable abscess. There is however a possible small intramural abscess of the sigmoid. 2. Absent left kidney. 3. Small hiatal hernia. ACT 112: Negative or not required by law. The above report was generated using voice recognition software. It may contain grammatical, syntax or spelling errors. Electronically signed by: Junior Whitlock M.D. 11/23/2024 12:17 PM Hospital Course (1) Diverticulitis: (2) Hypothyroidism: (3) Dyslipidemia: Plan 69-year-old female who presents with abdominal pain found to have diverticulitis with a small intramural abscess. 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 Urine culture negative. #Diverticulitis Patient received IVF in the emergency department Leukocytosis has resolved (11.4 -> 8.4); VSS A/P CT with small intramural abscess; not drainable Continue ciprofloxacin + Flagyl Initially n.p.o. but diet has been advanced to low residue which she is tolerating Patient reports resolution of abdominal pain. No n/v. +Diarrhea which she believes is d/t antibiotics. Plan for d/c home to complete course of Cipro/Flagyl orally for total of 10 days. Counseled on importance of monitoring dietary intake in regards to recurrences. #Hypothyroidism Continue [place] Thyroid #Dyslipidemia Continue Crestor Patient is medically and hemodynamically stable for discharge home. Recommend f/u with pcp within 1 week. Return to ER or call 911 in event of medical emergency. Plan has been d/w Dr. Lubin who is in agreement. Total time for discharge: 35 minutes Supervising Physician Co-Signing Physician Notes The patient was not seen by me. The chart was reviewed. Case discussed with MAIRA Ferguson. Agree with assessment and plan Coding Level of Care Code 07621 INP/OBS DISCH >30 MIN Diagnoses Diverticulitis K57.92 Hypothyroidism E03.9 Dyslipidemia E78.5
== END 2024-11-25 12:43 | disposition home or self-care (01) | DRG 392 ==
LOC: ED 10:34 → SUATTDRO 12:44 → EDINP 12:44 → 3N 15:57